=== PATIENT | female | born 1970 | race African-American/Black ===

== ENCOUNTER 2018-05-03 21:46 | Emergency (ER) | payer OTHER ==
[~2018-05-03 21:46] MED LIST: AMOXICILLIN875 MG PO; CLONAZEPAM 0.50.5 M1 PO; FLOVENT DISKUS50 MCG INH; HYDROCODONE-AC120 ML PO; PREDNISONE 10 M10 M1 PO; PREDNISONE50 MG PO; SERTRALINE HCL100 MG PO; XOPENEX0.31 MG/3 INH
== END 2018-05-03 23:06 | disposition home or self-care (01) ==
LOC: ER 21:46
DX: Z53.21 Procedure and treatment not carried out due to patient leaving prior to being seen by health care provider (principal)